=== PATIENT | male | born 1995 | race Caucasian/White ===

== ENCOUNTER 2019-09-02 14:35 | Outpatient (CLI) | payer OTHER, SELFPAY ==
--- NOTE | ~2019-09-02 | CT_ITS ---
EXAMINATION: CT chest wo con EXAM DATE: 09/02/2019 15:03 INDICATION: Chest tightness, cardiac chamber compression. TECHNIQUE: Spiral CT of the chest without contrast. Axial, coronal and sagittal images were reviewe d. Coronal maximum intensity pixel images of chest reviewed. The dose-length product (DLP) for this examination was 242.60 mGy-cm. The exposure was tailored according to patient size (auto mA exposur e control), and iterative reconstruction (ASIR) was used as additional dose reduction technique. The re is no prior study for comparison. FINDINGS: Several small pulmonary nodules up to 4 mm likely postinfectious. There are no pleural or pericardial effusions. Tracheobronchial tree is patent. There is no mediastinal, hilar or axilla ry lymphadenopathy. There is no pneumothorax. Heart normal in size. No evidence of coronary art erial calcification. Upper abdomen is unremarkable. The bones are unremarkable. IMPRESSION: Small post infectious residua. Otherwise normal exam. Reviewed, dictated and finalized at location A.
== END 2019-09-02 14:36 | disposition home or self-care (01) ==
PROVIDERS: Visit Provider Internal Medicine Cardiovascular Disease
DX: R07.89 Other chest pain (principal); R93.89 Abnormal findings on diagnostic imaging of other specified body structures
CPT/HCPCS: 71250

== ENCOUNTER 2020-05-14 11:55 | Outpatient (CLI) | payer OTHER, SELFPAY ==
[2020-05-15 06:44] LABS: SARS-CoV-2 RNA PCR Positive
== END 2020-05-14 11:56 | disposition home or self-care (01) ==
LOC: CHSLAB 12:01
PROVIDERS: PCP Physician Assistant; Visit Provider Physician Assistant
DX: U07.1 COVID-19 (principal)
CPT/HCPCS: 87635; C9803; U0003

== ENCOUNTER 2024-07-04 17:17 | Outpatient (CLI) | payer OTHER, SELFPAY ==
--- NOTE | ~2024-07-04 | XR_ITS ---
HISTORY: M25.571 - Pain in right ankle and joints of right foot COMPARISON: 09/30/2017 TECHNIQUE: 4 views of the right ankle were performed FINDINGS: No acute fracture or dislocation. No significant soft tissue swelling. The ankle mortise is preserved. Bone mineralization is age-appropriate. IMPRESSION: Unremarkable views of the right ankle, as detailed Reviewed, dictated and finalized at location A. [employer]
== END 2024-07-04 17:18 | disposition home or self-care (01) ==
LOC: CHSIMG 17:20
PROVIDERS: PCP Family Medicine; Visit Provider Physician Assistant
DX: M25.571 Pain in right ankle and joints of right foot (principal)
CPT/HCPCS: 73610